=== PATIENT | female | born 1975 | race Caucasian/White ===

== ENCOUNTER 2023-04-07 06:29 | Day surgery (SDC) | payer OTHER, SELFPAY ==
--- NOTE | 2023-03-20 09:30 | CM ---
Patient is scheduled for cervical spine surgery on 04/07/23. Spoke with patient prior to surgery via telephone. Introduced role of the Orthopedic Navigator. Patient reports that she lives with her and three children in a two story home. There
are three steps to enter and a flight of steps to the second floor. She currently functions independently. She has a cervical collar. She has never had VN services. PCP is Johana Interiano.
Discussed orthopedic program, post surgical plans and tentative plan for patient to return home when directed by surgeon. Patient is in agreement with tentative plan and will have support from her family when she goes home.
Plan: Orthopedic Navigator will remain available to assist with the care of patient and will reassess discharge needs after surgery.
[2023-04-03 13:08] VITALS: BMI 25.9
[2023-04-03 13:51] VITALS: BMI 25.9
[2023-04-03 14:10] LABS: Hematocrit 35.1 % (37.0-47.0); Hemoglobin 11.8 g/dL (12.0-16.0); Mean Corp Hgb Conc. 33.6 g/dL (33.0-37.0); Mean Corpuscular Hgb 27.8 pg (27.0-31.0); Mean Corpuscular Volume 82.6 fL (81.0-99.0); Mean Platelet Volume 10.3 fL (7.4-10.4); Platelet Count 341 10^3/uL (130-400); Red Blood Cell Count 4.25 10^6/uL (4.20-5.40); Red Cell Dist. Width 13.3 % (11.5-14.5); White Blood Cell Count 7.7 10^3/uL (4.8-10.8)
[2023-04-03 14:20] LABS: ALT (SGPT) 40 U/L (0-35); AST (SGOT) 32 U/L (14-36); Albumin 4.4 g/dl (3.5-5.0); Alkaline Phosphatase 104 U/L (38-126); Blood Urea Nitrogen 11 mg/dl (7-17); Calcium 9.3 mg/dl (8.4-10.2); Carbon Dioxide 24 mmol/L (22-30); Chloride 105 mmol/L (98-107); Estimated Creatinine Clearance 78 ml/min; Glucose 110 mg/dl (70-99); Sodium 137 mmol/L (135-145); Total Bilirubin 0.5 mg/dl (0.2-1.3); Total Protein 7.2 g/dl (6.3-8.2); eGFR > 60.00
[2023-04-07] VITALS (10 sets, daily range): BP systolic 113–154; BP diastolic 67–101; BMI 25.9
[2023-04-07] MEDS: NORMOSOL-R 1000 IV (07:49)
[2023-04-07] MEDS: TRANSDERM-SCOP 1 PATCH TRANSDERM (08:45)
[2023-04-07] MEDS: DILAUDID 0.25 MG IV ×2 (11:42→12:01)
[2023-04-07] MEDS: ULTRAM 50 MG PO (13:37)
== END 2023-04-07 13:53 | disposition home or self-care (01) ==
LOC: SDS 06:29
PROVIDERS: ATTENDING PHYSICIAN Orthopaedic Surgery Orthopaedic Surgery of the Spine; FAMILY PHYSICIAN Physician Assistant Medical; OTHER PHYSICIAN Physician Assistant Medical
DX: M48.02 Spinal stenosis, cervical region (principal); M50.122 Cervical disc disorder at C5-C6 level with radiculopathy
CPT/HCPCS: 22551; 22554; 22845; 22853; C1776; 36415; 72020; 80053; 85027; 86850; 86900; 86901; 87070; 93005; C1713

== ENCOUNTER → 2023-05-25 10:53 | Outpatient (REF) | payer OTHER, SELFPAY | LOC: PAVMRI 10:53 | PROVIDERS: ATTENDING PHYSICIAN Orthopaedic Surgery Orthopaedic Surgery of the Spine; FAMILY PHYSICIAN Physician Assistant Medical | DX: M48.02 Spinal stenosis, cervical region (principal) | CPT/HCPCS: 72141 ==

== ENCOUNTER → 2023-06-10 16:52 | Outpatient (REF) | payer OTHER, SELFPAY | LOC: PAVMRI 16:52 | PROVIDERS: ATTENDING PHYSICIAN Nurse Practitioner Adult Health; FAMILY PHYSICIAN Physician Assistant Medical | DX: Q07.00 Arnold-Chiari syndrome without spina bifida or hydrocephalus (principal); R26.9 Unspecified abnormalities of gait and mobility | CPT/HCPCS: 72146 ==

== ENCOUNTER → 2023-06-18 17:25 | Outpatient (REF) | payer OTHER, SELFPAY | LOC: MRI 17:25 | PROVIDERS: ATTENDING PHYSICIAN Nurse Practitioner Adult Health; FAMILY PHYSICIAN Physician Assistant Medical | DX: Q07.00 Arnold-Chiari syndrome without spina bifida or hydrocephalus (principal); M47.812 Spondylosis without myelopathy or radiculopathy, cervical region; R26.9 Unspecified abnormalities of gait and mobility | CPT/HCPCS: 70553; A9575 ==

== ENCOUNTER → 2023-06-19 08:32 | Outpatient (REF) | payer OTHER, SELFPAY | LOC: WDC 08:32 | PROVIDERS: ATTENDING PHYSICIAN Nurse Practitioner Family | DX: Z12.31 Encounter for screening mammogram for malignant neoplasm of breast (principal) | CPT/HCPCS: 77063; 77067 ==

== ENCOUNTER 2023-06-29 20:40 | Emergency (ER) | payer OTHER, SELFPAY ==
[2023-06-29 20:42] VITALS: BP 174/108
[2023-06-29 21:01] LABS: % Basophils 0.6 % (0-2); % Immature Granulocytes 0.4 % (0-0.5); % Lymphocytes 23.3 % (20.5-51.1); % Monocytes 8.4 % (1.7-9.3); % Neutrophils 66.3 % (42.2-75.2); Absolute Basophils 0.1 10^3/uL (0-0.2); Absolute Eosinophils 0.1 10^3/uL (0-0.7); Absolute Immature Granulocytes 0.1 10^3/uL (0-0.05); Absolute Lymphocytes 3.3 10^3/uL (1.2-3.4); Absolute Monocytes 1.2 10^3/uL (0.1-0.6); Absolute Neutrophils 9.5 10^3/uL (1.4-6.5); Mean Corp Hgb Conc. 33.3 g/dL (33.0-37.0); Mean Corpuscular Hgb 27.1 pg (27.0-31.0); Mean Corpuscular Volume 81.3 fL (81.0-99.0); Mean Platelet Volume 9.5 fL (7.4-10.4); Nucleated Red Blood Cells % 0 %; Platelet Count 389 10^3/uL (130-400); Red Blood Cell Count 4.43 10^6/uL (4.20-5.40); Red Cell Dist. Width 13.5 % (11.5-14.5); White Blood Cell Count 14.3 10^3/uL (4.8-10.8)
[2023-06-29 21:02] LABS: Urine Albumin Trace (Neg - Trace); Urine Bilirubin Negative (Negative); Urine Character Clear (Clear); Urine Color Red; Urine Glucose Negative (Negative); Urine Ketone Negative (Negative); Urine Leukocyte 2+ (Negative); Urine Nitrite Negative (Negative); Urine Occult Blood 4+ (Negative); Urine Urobilinogen Negative (Neg - 1+)
[2023-06-29 21:09] LABS: Urine Bacteria Moderate (Negative); Urine Red Blood Cell 26-30 /HPF (0-2)
[2023-06-29 21:12] LABS: HCG, Serum Qualitative Screen Negative
[2023-06-29 21:17] LABS: ALT (SGPT) 17 U/L (0-35); AST (SGOT) 23 U/L (14-36); Albumin 4.8 g/dl (3.5-5.0); Alkaline Phosphatase 105 U/L (38-126); Blood Urea Nitrogen 10 mg/dl (7-17); Calcium 9.8 mg/dl (8.4-10.2); Carbon Dioxide 28 mmol/L (22-30); Chloride 100 mmol/L (98-107); Glucose 96 mg/dl (70-99); Potassium 3.5 mmol/L (3.5-5.1); Sodium 134 mmol/L (135-145); Total Bilirubin 0.3 mg/dl (0.2-1.3); eGFR > 60.00
[2023-06-29 23:22] VITALS: BMI 26.8
[2023-06-29 23:26] VITALS: BP 160/93
--- NOTE | 2023-06-30 00:08 | ED.GENMED ---
History of Present Illness
General
Chief Complaint: Urinary Symptoms
Source: patient
Exam Limitations: none
Time Seen by Provider: 06/29/23 23:52
Nursing documentation reviewed up to this point in time: agreed with
Travel History
Have you had any contact with someone who has COVID-19?: No
Do you have any symptoms of coronavirus? Fever > 100 degrees, chills, cough, shortness of breath, sore throat, loss of taste or smell, muscle aches, or headache?: No
History of Present Illness
History of Present Illness:
47-year-old female presents to emergency department complaining of right flank pain, dysuria and hematuria. No fevers. It feels similar to when she had a kidney stone.
Past History
Past History
ED Past Medical History: GERD
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
Social History
Tobacco: Non-smoker
Alcohol: None
Personal:
Living: with family
Employment: Employed
Review of Systems
Review of Systems
Allergies reviewed?: Yes
Constitutional: Reports no symptoms
EENT: Reports no symptoms
Respiratory: Reports no symptoms
Cardiac: Reports no symptoms
ABD/GI: Reports no symptoms
: Reports dysuria, flank pain, urgency and bleeding
Musculoskeletal: Reports no symptoms
Skin: Reports no symptoms
Neurological: Reports no symptoms
Endocrine: Reports no symptoms
Hematologic/Lymphatic: Reports no symptoms
Psychiatric: Reports no symptoms
Phy Exam
Physical Exam
Physical Exam:
Physical Exam
General: no apparent distress, not acutely ill
Neck: supple. no meningeal signs. normal posterior pharynx
Heart: s1/s2 regular rate and rhythm, no murmur. equal radial
pulses.
HEENT: Pupils equal round reactive to light, EOMI
Lungs: no acute respiratory distress. clear bilaterally
Abdomen: normal bowel sounds. not tender. no CVAT
Neuro: alert and oriented. no focal neurological deficits cranial nerves II through XII intact
Skin: no rash
Psychiatric: well kept. interactive and cooperative
Extremities: no edema. no calf tenderness. negative homans. 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
Course
Orders/Labs/Results
Orders:
Orders
06/29/23 20:46
Test Result ONCE
06/29/23 20:48
Urinalysis Reflex To Culture Urgent
Date Specimen was Collected: 06/29/23
Time Specimen was Collected: 20:47
Urine Microscopic Reflex Cult Urgent
Urine Culture Urgent
MANE Source: U
Specimen Description:
Date Specimen was Collected: 06/29/23
Time Specimen was Collected: 20:47
06/29/23 20:52
CMP [Comprehensive Metabolic Panel] Urgent
Complete Blood Count/With Diff Urgent
HCG, Serum Qualitative Screen Urgent
06/30/23 00:06
CT Abd/pel Without Iv Or Oral Urgent
Comment:
Reason For Exam: right flank pain, dysuria, hematuria
06/30/23 00:07
0.9% Sodium Chloride 1000 ml [Nss] 1,000 ml IV BOLUS
06/30/23 01:36
CefTRIAXone [Rocephin] 1,000 mg IV NOW STA
Abnormal Lab Results
06/29/23 06/29/23
20:48 20:52
WBC 14.3 H 10^3/uL
(4.8-10.8)
Hct 36.0 L %
(37.0-47.0)
Abs Immat Gran (auto) 0.1 H 10^3/uL
(0-0.05)
Absolute Neuts (auto) 9.5 H 10^3/uL
(1.4-6.5)
Absolute Monos (auto) 1.2 H 10^3/uL
(0.1-0.6)
Sodium 134 L mmol/L
(135-145)
Ur Occult Blood Reflex 4+ A
(Negative)
Leukocyte Esterase Rfl 2+ A
(Negative)
Urine RBC 26-30 A /HPF
(0-2)
Urine WBC (Reflex) 11-15 A /HPF
(0-5)
Urine Bacteria (Reflex) Moderate A
(Negative)
06/29/23 20:52
06/29/23 20:52
Vital Signs
Initial and Last Documented VS:
Initial Vital Signs
Temp Pulse Resp BP Pulse Ox
98 F 90 18 174/108 97
06/29/23 20:42 06/29/23 20:42 06/29/23 20:42 06/29/23 20:42 06/29/23 20:42
Last Documented Vital Signs
Temp Pulse Resp BP Pulse Ox
98.4 F 93 16 146/97 100
06/30/23 01:54 06/29/23 23:26 06/29/23 23:26 06/30/23 01:54 06/29/23 23:26
MDM/Problems Addressed
Differential Diagnosis Includes:
. Ureteral calculus, pyelonephritis, UTI
MDM/Problems Addressed:
47-year-old female with suspected ascending UTI. No signs of ureteral calculus or pyelonephritis. Treat with Rocephin and Keflex. Discharged to follow-up with primary care. Return precautions given.
*Radiology
Radiology exam reviewed: preliminary read by ED provider (CT abdomen pelvis no acute findings)
*Pulse Oximetry
Patient hypoxic: no
*EKG
Interpreted by ED Provider?: NA
*Laborer Syrup Machine Interpretation
Rate: Laborer Syrup Machine- N/A
*Critical Care Note
Total Time (30-74mins, 75-104mins- exclusive of procedures): Not Applicable
Data Reviewed
Review of Other/Old Records Reveals: Radiology Studies (Prior CT abdomen pelvis 2019 no acute findings)
Patient Management
Social determinants of health affecting care: Living situation
Escalation/DeEscalation of care consider admission/obs:
Admit not indicated
ED Attending Note
-
Portions of this chart may have been created with voice recognition software.� Occasional wrong word or��sound alike� substitutions may have occurred due to the inherent limitations of voice recognition software.
Discharge Plan
Departure
Patient Disposition: Home (Routine Discharge)
Date of Disposition: 06/30/23
Time of Disposition: 01:36
Patient with high blood pressure during this ER visit?: Yes
Condition: Good
Discharge Problem:
UTI (urinary tract infection)
Instructions: Urinary Tract Infection, Adult (DC), BLOOD PRESSURE
Prescriptions:
New
cephalexin 500 mg capsule
500 mg PO BID 7 Days Qty: 14 0RF
No Action
alprazolam [Xanax] 1 mg Tablet
1 mg PO BID PRN (Reason: ANXIETY)
omeprazole 40 mg Capsule,Delayed Release(Dr/Ec)
40 mg PO DAILY
zolpidem [Ambien] 10 mg Tablet
10 mg PO HS PRN (Reason: sleep)
Multivitamin With Probiotic
1 tab PO DAILY
sulfamethoxazole-trimethoprim [Bactrim DS] 800-160 mg Tablet
1 tab PO BID
Referrals:
Naima Interiano PA [Family Provider] - Call in 1-3 days for appt
Activity Restrictions/Additional Instructions:
Stop bactrim, start keflex.
Interventions
Interventions:
*Risk Screen - Suicide Last Done: 06/29/23 20:42
*General Assessment Last Done: 06/29/23 23:23
*Neglect/Abuse Screening Last Done: 06/29/23 20:42
ED- Fall Risk Assessment Last Done: 06/29/23 23:23
*ED COVID-19 Vaccine History Last Done: 06/29/23 23:23
*Nursing Disposition Last Done: 06/30/23 02:00
ED-Female Genitourinary Assessment Last Done: 06/29/23 23:23
Discharge Date and Time
Discharge Date/Time: 06/30/23 02:00
Print Language: BAHRAINI
[2023-06-30] MEDS: NSS 1000 IV (00:37)
[2023-06-30] MEDS: ROCEPHIN 1000 MG IV (01:52)
[2023-06-30 01:54] VITALS: BP 146/97
== END 2023-06-30 02:00 | disposition home or self-care (01) ==
LOC: EMR 20:40
PROVIDERS: EMERGENCY PHYSICIAN Emergency Medicine; FAMILY PHYSICIAN Physician Assistant Medical
DX: N39.0 Urinary tract infection, site not specified (principal); R03.0 Elevated blood-pressure reading, without diagnosis of hypertension; K21.9 Gastro-esophageal reflux disease without esophagitis; G93.5 Compression of brain; J45.909 Unspecified asthma, uncomplicated; K58.9 Irritable bowel syndrome, unspecified; F41.9 Anxiety disorder, unspecified; M50.30 Other cervical disc degeneration, unspecified cervical region; Q74.0 Other congenital malformations of upper limb(s), including shoulder girdle; K76.0 Fatty (change of) liver, not elsewhere classified; Z90.49 Acquired absence of other specified parts of digestive tract; Z88.1 Allergy status to other antibiotic agents; Z88.2 Allergy status to sulfonamides; Z91.048 Other nonmedicinal substance allergy status
CPT/HCPCS: 99284; 96374; 96361; 74176; 80053; 81003; 81015; 84703; 85025; 87086

== ENCOUNTER 2023-07-01 10:41 | Emergency (ER) | payer OTHER, SELFPAY ==
[2023-07-01 10:45] VITALS: BP 141/94
--- NOTE | 2023-07-01 11:20 | ED.GENMED ---
History of Present Illness
General
Chief Complaint: Urinary Symptoms
Time Seen by Provider: 07/01/23 11:09
Travel History
Have you had any contact with someone who has COVID-19?: No
Do you have any symptoms of coronavirus? Fever > 100 degrees, chills, cough, shortness of breath, sore throat, loss of taste or smell, muscle aches, or headache?: No
History of Present Illness
History of Present Illness:
47-year-old female presents to the emergency department for evaluation of heavy vaginal bleeding developing last night. She was seen here just over 36 hours ago for flank pain and a urinary tract infection, had a CT at that time that showed no
evidence for kidney stone. Patient states her UTI symptoms have not changed, received an IV dose of antibiotics in emergency department has taken 2 oral doses thus far. States that last night she developed mild vaginal bleeding and this morning
awoke with severe saturation of underwear. Denies any fevers or chills. Continues with lower abdominal and bilateral flank discomfort. Not on any anticoagulants. Her last menstrual cycle was 18 days ago and midcycle bleeding would be very
atypical for her. Not on any hormonal control at this time.
Past History
Past History
ED Past Medical History: GERD
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
Social History
Tobacco: Non-smoker
Alcohol: None
Personal:
Living: with family
Employment: Employed
Review of Systems
Review of Systems
Allergies reviewed?: Yes
All Other Systems: ROS reviewed and negative except as documented in HPI and ROS
Phy Exam
Physical Exam
Physical Exam:
GEN: Well appearing, NAD, WDWN
HEENT: Oral mucosa moist, no scleral icterus
Cardiac: Regular rate
Lung: No respiratory distress, no tachypnea
: Deferred
MSK: No gross deformity or injuries
Skin: Good color, no pallor or jaundice, no rashes
Neuro: AO x3, moves all extremities freely
Psych: Calm, cooperative
Course
Orders/Labs/Results
Orders:
Orders
07/01/23 11:20
US Pelvis W Transvag Combined Urgent
Reason For Exam: menometrorrhagia
Vital Signs
Initial and Last Documented VS:
Initial Vital Signs
Temp Pulse Resp BP Pulse Ox
98.0 F 109 18 141/94 100
07/01/23 10:45 07/01/23 10:45 07/01/23 10:45 07/01/23 10:45 07/01/23 10:45
Last Documented Vital Signs
Temp Pulse Resp BP Pulse Ox
98.0 F 99 18 141/94 98
07/01/23 10:45 07/01/23 14:17 07/01/23 10:45 07/01/23 10:45 07/01/23 14:17
MDM/Problems Addressed
MDM/Problems Addressed:
Patient's bleeding is likely from the suspected endometrial polyp. Quantity of bleeding does not sound concerning as it is qualified as similar to her., Given that she had routine unremarkable labs in the emergency department within the past 2
days do not see any indication to repeat this. I suspect this is more coincidental than related to her UTI. Recommend outpatient [facility] follow-up
*Critical Care Note
Total Time (30-74mins, 75-104mins- exclusive of procedures): Not Applicable
ED Attending Note
-
Portions of this chart may have been created with voice recognition software.� Occasional wrong word or��sound alike� substitutions may have occurred due to the inherent limitations of voice recognition software.
Discharge Plan
Departure
Patient Disposition: Home (Routine Discharge)
Date of Disposition: 07/01/23
Time of Disposition: 14:04
Patient with high blood pressure during this ER visit?: No
Discharge Problem:
Menometrorrhagia
Instructions: Bleeding Between Periods
Prescriptions:
No Action
alprazolam [Xanax] 1 mg Tablet
1 mg PO BID PRN (Reason: ANXIETY)
omeprazole 40 mg Capsule,Delayed Release(Dr/Ec)
40 mg PO DAILY
zolpidem [Ambien] 10 mg Tablet
10 mg PO HS PRN (Reason: sleep)
Multivitamin With Probiotic
1 tab PO DAILY
sulfamethoxazole-trimethoprim [Bactrim DS] 800-160 mg Tablet
1 tab PO BID
cephalexin 500 mg capsule
500 mg PO BID 7 Days Qty: 14 0RF
Referrals:
Naima Interiano PA [Family Provider] -
Activity Restrictions/Additional Instructions:
Follow up with your DERRICK HELPER regarding the possible endometrial polyp seen on ultrasound
Interventions
Interventions:
*Risk Screen - Suicide Last Done: 07/01/23 11:39
*General Assessment Last Done: 07/01/23 11:39
*Neglect/Abuse Screening Last Done: 07/01/23 11:39
ED- Fall Risk Assessment Last Done: 07/01/23 11:40
*ED COVID-19 Vaccine History Last Done: 07/01/23 10:45
*Nursing Disposition Last Done: 07/01/23 14:17
ED-Female Genitourinary Assessment Last Done: 07/01/23 11:40
Discharge Date and Time
Discharge Date/Time: 07/01/23 14:18
Print Language: BURKINAN
[2023-07-01 11:39] VITALS: BMI 25.8
== END 2023-07-01 14:18 | disposition home or self-care (01) ==
LOC: EMR 10:41
PROVIDERS: EMERGENCY PHYSICIAN Emergency Medicine; FAMILY PHYSICIAN Physician Assistant Medical
DX: N92.1 Excessive and frequent menstruation with irregular cycle (principal)
CPT/HCPCS: 99284; 76830; 76856

== ENCOUNTER 2023-07-10 11:57 | Outpatient (RCR) | payer OTHER, SELFPAY | END 2023-07-10 23:59 | disposition home or self-care (01) | LOC: RPT 11:57 | PROVIDERS: ATTENDING PHYSICIAN Orthopaedic Surgery Orthopaedic Surgery of the Spine; FAMILY PHYSICIAN Physician Assistant Medical; OTHER PHYSICIAN Orthopaedic Surgery; OTHER PHYSICIAN Physician Assistant Medical | DX: M48.02 Spinal stenosis, cervical region (principal); Z98.1 Arthrodesis status; Z73.6 Limitation of activities due to disability | CPT/HCPCS: 97110; 97163; 97535 ==

== ENCOUNTER 2023-08-14 15:19 | Outpatient (RCR) | payer OTHER, SELFPAY | END 2023-08-14 23:59 | disposition home or self-care (01) | LOC: RPT 15:19 | PROVIDERS: ATTENDING PHYSICIAN Orthopaedic Surgery Orthopaedic Surgery of the Spine; FAMILY PHYSICIAN Physician Assistant Medical; OTHER PHYSICIAN Orthopaedic Surgery; OTHER PHYSICIAN Physician Assistant Medical | DX: M48.02 Spinal stenosis, cervical region (principal); Z98.1 Arthrodesis status; Z73.6 Limitation of activities due to disability | CPT/HCPCS: 97110; 97535 ==

== ENCOUNTER → 2023-08-26 10:51 | Outpatient (REF) | payer OTHER, SELFPAY | LOC: WDC 10:51 | PROVIDERS: ATTENDING PHYSICIAN Obstetrics & Gynecology; FAMILY PHYSICIAN Physician Assistant Medical | DX: R92.2 Inconclusive mammogram (principal) | CPT/HCPCS: 76641 ==

== ENCOUNTER → 2023-08-27 07:39 | Outpatient (REF) | payer OTHER, SELFPAY | LOC: EMG 07:39 | PROVIDERS: ATTENDING PHYSICIAN Nurse Practitioner Adult Health; FAMILY PHYSICIAN Family Medicine | DX: R20.0 Anesthesia of skin (principal) | CPT/HCPCS: 95886; 95909 ==

== ENCOUNTER → 2023-10-09 10:55 | Outpatient (REF) | payer OTHER, SELFPAY | LOC: RAD 10:55 | PROVIDERS: ATTENDING PHYSICIAN Obstetrics & Gynecology; FAMILY PHYSICIAN Nurse Practitioner Family | DX: N39.8 Other specified disorders of urinary system (principal) | CPT/HCPCS: 58340; 76830; 76831; 76856 ==

== ENCOUNTER 2023-11-02 11:55 | Outpatient (RCR) | payer OTHER, SELFPAY | END 2023-11-02 23:59 | disposition home or self-care (01) | LOC: ROT 11:55 | PROVIDERS: ATTENDING PHYSICIAN Orthopaedic Surgery Hand Surgery; FAMILY PHYSICIAN Physician Assistant Medical | DX: R20.0 Anesthesia of skin (principal); Z73.6 Limitation of activities due to disability | CPT/HCPCS: 97018; 97035; 97110; 97140; 97166; 97535 ==

== ENCOUNTER → 2023-12-15 13:09 | Outpatient (REF) | payer OTHER, SELFPAY | LOC: RCS 13:09 | PROVIDERS: ATTENDING PHYSICIAN Internal Medicine Cardiovascular Disease; FAMILY PHYSICIAN Nurse Practitioner Family | DX: R00.2 Palpitations (principal) | CPT/HCPCS: 93225; 93226 ==

== ENCOUNTER → 2023-12-18 20:23 | Outpatient (REF) | payer OTHER, SELFPAY | LOC: PAVMRI 20:23 | PROVIDERS: ATTENDING PHYSICIAN Orthopaedic Surgery Hand Surgery; FAMILY PHYSICIAN Nurse Practitioner Family | DX: M25.512 Pain in left shoulder (principal) | CPT/HCPCS: 73221 ==

== ENCOUNTER 2023-12-29 06:54 | Day surgery (SDC) | payer OTHER, SELFPAY ==
[2023-12-29] VITALS (8 sets, daily range): BP systolic 124–145; BP diastolic 64–84; BMI 27.0
[2023-12-29] MEDS: TYLENOL 1000 MG PO (12:01)
[2023-12-29] MEDS: MOBIC 15 MG PO (12:01)
[2023-12-29] MEDS: TRANSDERM-SCOP 1 PATCH TRANSDERM (12:03)
[2023-12-29] MEDS: DILAUDID 0.25 MG IV (14:13)
[2023-12-29] MEDS: DEMEROL 12.5 MG IV ×2 (14:28→14:38)
[2023-12-29] MEDS: ZOFRAN 4 MG IV (14:34)
--- NOTE | 2023-12-29 15:13 | SUR.PHASEI ---
patient in pacu - initially sedate and then c/o pain 10/10 right hand - but feels 'always difficult to take a deep breath after surgery' - cautiously medicating with dilaudid. Then shivering violently - Medicated with demerol x2 for shivers with
relief and some relief of pain, zofran repeated for slight nausea. Now feels pain is tolerable at 9.5 - refuses further pain meds, positioned for comfort. right arm elevated as much as possible. able to take ice chip po and tolerate..Discharge
to [facility]
== END 2023-12-29 16:47 | disposition home or self-care (01) ==
LOC: SDS 06:54
PROVIDERS: ATTENDING PHYSICIAN Orthopaedic Surgery Hand Surgery
DX: G56.01 Carpal tunnel syndrome, right upper limb (principal); M18.11 Unilateral primary osteoarthritis of first carpometacarpal joint, right hand; M75.42 Impingement syndrome of left shoulder; M75.41 Impingement syndrome of right shoulder
CPT/HCPCS: 25447; 64721

== ENCOUNTER 2024-02-18 08:59 | Outpatient (RCR) | payer OTHER, SELFPAY | END 2024-02-18 23:59 | disposition home or self-care (01) | LOC: ROT 08:59 | PROVIDERS: ATTENDING PHYSICIAN Orthopaedic Surgery Hand Surgery; FAMILY PHYSICIAN Physician Assistant Medical | DX: Z47.89 Encounter for other orthopedic aftercare (principal); M79.641 Pain in right hand; M25.641 Stiffness of right hand, not elsewhere classified; Z73.6 Limitation of activities due to disability | CPT/HCPCS: 97018; 97110; 97140; 97166; 97535 ==

== ENCOUNTER → 2024-03-16 09:16 | Outpatient (REF) | payer OTHER, SELFPAY | LOC: HWRAD 09:16 | PROVIDERS: ATTENDING PHYSICIAN Nurse Practitioner Adult Health; FAMILY PHYSICIAN Nurse Practitioner Family | DX: Q07.00 Arnold-Chiari syndrome without spina bifida or hydrocephalus (principal) | CPT/HCPCS: 70450 ==

== ENCOUNTER 2024-03-23 14:46 | Emergency (ER) | payer OTHER, SELFPAY ==
[2024-03-23 14:48] VITALS: BP 170/100
--- NOTE | 2024-03-23 17:42 | ED.GENMED ---
History of Present Illness
<Shanika Lopez PA-C - Last Filed: 03/23/24 23:28>
General
Chief Complaint: Facial Problem
Source: patient and spouse ( at bedside)
Exam Limitations: none
Time Seen by Provider: 03/23/24 17:04
Nursing documentation reviewed up to this point in time: agreed with
History of Present Illness
History of Present Illness:
48-year-old female presenting with decreased sensation to left side of face. Patient has noticed the symptoms for the past week and feels they are mildly worsening. Patient denies any total numbness but describes a 'swollen' sensation from left
forehead down to left chin. Patient denies any dysphagia or difficulty chewing. Patient states the sensory deficits to extremities. No focal weakness. Patient does state that she has had an unsteady gait and headaches since surgery. Patient
denies any fevers although has had intermittent chills. No difficulty breathing
Of note�patient did have a Chiari malformation surgery approximately 1 month ago at [facility] complicated by a left TM perforation for which she has been following with ENT. Patient has had intermittent fullness in her left ear and sharp pain. Some
decrease in hearing on left side. She has a follow-up with ENT scheduled on Thursday.
Patient did contact ENT and her neurosurgeon who recommended evaluation the emergency department regarding facial numbness.
Past History
<Shanika Lopez PA-C - Last Filed: 03/23/24 23:28>
Past History
ED Past Medical History: GERD
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
Social History
Tobacco: Non-smoker
Alcohol: None
Personal:
Living: with family
Employment: Employed
Review of Systems
<Shanika Lopez PA-C - Last Filed: 03/23/24 23:28>
Review of Systems
Allergies reviewed?: Yes
All Other Systems: ROS reviewed and negative except as documented in HPI and ROS
Phy Exam
<Shanika Lopez PA-C - Last Filed: 03/23/24 23:28>
Physical Exam
Physical Exam:
Vitals: Patient's vital signs are stable. Afebrile
General: Patient is in no apparent distress.
Skin: Warm and dry, no rashes or lesions
Head: Normocephalic, atraumatic. Well-healing vertical scar on occipital scalp.
Eyes: Sclera nonicteric. EOMs intact. Visual zayas intact. No nystagmus. No ptosis
Ears: Right ear patent with clear TM and visualized landmarks. Left ear with clot, unable to visualize TM.
Throat: Protecting airway
Neck: Normal ROM, no cervical spine tenderness, no meningismus
Cardiac: Regular rate and rhythm, no murmurs.
Pulm: Normal respiratory effort, no wheezes, rales, rhonchi heard on exam.
Abdomen: No abdominal tenderness.
Extremities: No evidence of cyanosis or edema. Strength 5/5 in bilateral upper and lower extremities
Neuro: AAOx3. CN II-XII intact. Mild sensory deficit to left face. No facial asymmetry. No facial droop.
Psychiatric: Normal affect.
Course
<Shanika Lopez PA-C - Last Filed: 03/23/24 23:28>
Orders/Labs/Results
Orders:
Orders
03/23/24 18:31
CT Head W/o Iv Contrast Urgent
Comment: perforated L TM, recent chiari malformation sx
Reason For Exam: left facial numbness, requested per ENT
Vital Signs
Initial and Last Documented VS:
Initial Vital Signs
Temp Pulse Resp BP Pulse Ox
98.2 F 102 16 170/100 98
03/23/24 14:48 03/23/24 14:48 03/23/24 14:48 03/23/24 14:48 03/23/24 14:48
Last Documented Vital Signs
Temp Pulse Resp BP Pulse Ox
98.2 F 95 18 134/87 99
03/23/24 14:48 03/23/24 21:18 03/23/24 21:18 03/23/24 20:01 03/23/24 21:18
<Tom Abdalla DO - Last Filed: 03/23/24 20:19>
Orders/Labs/Results
Orders:
Orders
03/23/24 18:31
CT Head W/o Iv Contrast Urgent
Comment: perforated L TM, recent chiari malformation sx
Reason For Exam: left facial numbness, requested per ENT
Vital Signs
Initial and Last Documented VS:
Initial Vital Signs
Temp Pulse Resp BP Pulse Ox
98.2 F 102 16 170/100 98
03/23/24 14:48 03/23/24 14:48 03/23/24 14:48 03/23/24 14:48 03/23/24 14:48
Last Documented Vital Signs
Temp Pulse Resp BP Pulse Ox
98.2 F 95 18 134/87 99
03/23/24 14:48 03/23/24 21:18 03/23/24 21:18 03/23/24 20:01 03/23/24 21:18
<Shanika Lopez PA-C - Last Filed: 03/23/24 23:28>
MDM/Problems Addressed
Differential Diagnosis Includes:
Not limited to: Postoperative complication, trigeminal neuralgia, perforated TM, mastoiditis, etc.
MDM/Problems Addressed:
48-year-old female presents to ED with mild sensory deficit to left face ongoing over the past 1 to 2 weeks. Did have recent Chiari malformation surgery performed at [facility] 02/23 complicated by left TM perforation following with ENT. No associated
motor deficits, visual changes, dysphagia. No fevers. No mastoid tenderness or purulent drainage. Hypertensive on arrival although improved by my assessment. On exam�patient is well-appearing, in no apparent distress. She has a well-healing
vertical scar on scalp without evidence of surrounding cellulitis. She has no mastoid tenderness. Small clot noted in left ear unable to visualize TM. She does have a very mild sensory deficit to left face, although no numbness. No other focal
neurologic deficits on exam. Patient afebrile with otherwise no infectious symptoms. Very low suspicion for infectious process. No clinical suspicion for mastoiditis. Did discuss with ENT, Dr. Calle who recommends plain head CT, as this should
get good visualization of ear.
Update: CT head without acute findings. Ultimately�this may be a postoperative complication with possible involvement of the trigeminal nerve. Once again�do not suspect infectious process. Did contact patient's neurosurgeon at [facility] to relay
results. She will follow-up with patient next week in office. Advised patient to also follow-up with ENT as scheduled. Otherwise�patient stable for discharge home. Return precautions discussed
Chronic conditions affecting care:
Chiari Malformation
Acute Exacerbation and/or Progression of Chronic Illness:
N/A
<Shanika Lopez PA-C - Last Filed: 03/23/24 23:28>
*Radiology
Radiology exam reviewed: preliminary read by ED provider and radiology read reviewed
*Pulse Oximetry
Patient hypoxic: no
*EKG
Interpreted by ED Provider?: NA
*Shock Absorber Installer Interpretation
Rate: Shock Absorber Installer- N/A
*Critical Care Note
Total Time (30-74mins, 75-104mins- exclusive of procedures): Not Applicable
<Shanika Lopez PA-C - Last Filed: 03/23/24 23:28>
Patient Management
Discussion with other providers: Employee Representative (Dr. Caro Araya - neurosurgery at [facility])
ED Attending Note
<Shanika Lopez PA-C - Last Filed: 03/23/24 23:28>
-
Portions of this chart may have been created with voice recognition software.� Occasional wrong word or��sound alike� substitutions may have occurred due to the inherent limitations of voice recognition software.
<Tom Abdalla DO - Last Filed: 03/23/24 20:19>
ED Attending Note
Patient seen and examined by attending physician: Yes
I performed the substantive portion of visit, reviewed & personally made and approve the management plan that is documented in note by myself or ROBERT.: Yes
ED Attending Note:
48-year-old female who presents with symptoms as above. Recently had Chiari malformation surgery but unfortunately had a complication of perforated left TM. Exam: Awake alert, normal neuroexam. Left TM does have a clot noted but unable to see the
perforation. Cranial nerves are intact by motor exam. Assessment and plan: Check CT and if okay coordinate with neurosurgery already has ENT follow-up
Discharge Plan
Departure
Patient Disposition: Home (Routine Discharge)
Date of Disposition: 03/23/24
Time of Disposition: 21:02
Patient with high blood pressure during this ER visit?: Yes
Condition: Good
Covid-19: Not Applicable
Discharge Problem:
Left facial numbness, Post-operative complication
Instructions: BLOOD PRESSURE
Prescriptions:
No Action
alprazolam [Xanax] 1 mg Tablet
1 mg PO BID PRN (Reason: ANXIETY)
omeprazole 40 mg Capsule,Delayed Release(Dr/Ec)
40 mg PO DAILY
Multivitamin With Probiotic
1 tab PO DAILY
Belsomra 20 mg Tablet
20 mg PO HS
Referrals:
Caro Araya [Non-Admitting Privileges] - Follow up in 1 week
Olivia Munoz CRNP [Family Provider] -
Activity Restrictions/Additional Instructions:
Return to the emergency department with any fevers, severe headache/neck pain, severe pain in ER, weakness/numbness extremities, new neurologic deficits, or any other concerns
-As discussed�your head CT performed to the emergency department showed no acute abnormalities.
-Continue to follow your postoperative instructions as recommended by neurosurgery.
-As discussed�I did speak with your neurosurgeon dax. They will arrange for a closer follow-up outpatient sometime next week.
-You should also keep your appointment with ENT for this Thursday.
Monitor your symptoms closely and return to the emergency department with any acute worsening/new symptoms or any other concerns
Interventions
Interventions:
*Risk Screen - Suicide Last Done: 03/23/24 14:48
*General Assessment Last Done: 03/23/24 18:18
*Neglect/Abuse Screening Last Done: 03/23/24 14:48
ED- Fall Risk Assessment Last Done: 03/23/24 21:18
*ED COVID-19 Vaccine History Last Done: 03/23/24 18:18
*Nursing Disposition Last Done: 03/23/24 21:18
ED- Neurological Assessment Last Done: 03/23/24 18:19
ED-Skin Assessment Last Done: 03/23/24 18:20
Discharge Date and Time
Discharge Date/Time: 03/23/24 21:20
Print Language: DIVEHI
[2024-03-23 17:58] VITALS: BP 147/90
[2024-03-23 18:00] VITALS: BP 137/92
[2024-03-23 18:17] VITALS: BMI 23.9
[2024-03-23 20:01] VITALS: BP 134/87
== END 2024-03-23 21:20 | disposition home or self-care (01) ==
LOC: EMR 14:46
PROVIDERS: EMERGENCY PHYSICIAN Emergency Medicine; FAMILY PHYSICIAN Nurse Practitioner Family
DX: T81.89XA Other complications of procedures, not elsewhere classified, initial encounter (principal); R20.0 Anesthesia of skin; Y92.9 Unspecified place or not applicable; K21.9 Gastro-esophageal reflux disease without esophagitis
CPT/HCPCS: 99284; 70450

== ENCOUNTER 2024-05-05 13:01 | Outpatient (RCR) | payer OTHER, SELFPAY | END 2024-05-05 23:59 | disposition home or self-care (01) | LOC: ROT 13:01 | PROVIDERS: ATTENDING PHYSICIAN Orthopaedic Surgery Hand Surgery; FAMILY PHYSICIAN Physician Assistant Medical | DX: Z47.89 Encounter for other orthopedic aftercare (principal); Z73.6 Limitation of activities due to disability; M79.641 Pain in right hand; M25.541 Pain in joints of right hand | CPT/HCPCS: 97018; 97110; 97140; 97166; 97535 ==

== ENCOUNTER 2024-05-20 08:27 | Outpatient (RCR) | payer OTHER, SELFPAY | END 2024-05-20 23:59 | disposition home or self-care (01) | LOC: RPT 08:27 | PROVIDERS: ATTENDING PHYSICIAN Nurse Practitioner Adult Health; FAMILY PHYSICIAN Nurse Practitioner Family | DX: R42 Dizziness and giddiness (principal); Q07.00 Arnold-Chiari syndrome without spina bifida or hydrocephalus; Z73.6 Limitation of activities due to disability; R26.2 Difficulty in walking, not elsewhere classified | CPT/HCPCS: 97112; 97162 ==

== ENCOUNTER 2024-05-20 10:19 | Outpatient (RCR) | payer OTHER, SELFPAY | END 2024-05-20 23:59 | disposition home or self-care (01) | LOC: ROT 10:19 | PROVIDERS: ATTENDING PHYSICIAN Orthopaedic Surgery Hand Surgery; FAMILY PHYSICIAN Physician Assistant Medical | DX: Z47.89 Encounter for other orthopedic aftercare (principal); Z73.6 Limitation of activities due to disability; M79.641 Pain in right hand; M25.541 Pain in joints of right hand | CPT/HCPCS: 97018; 97110 ==

== ENCOUNTER → 2024-06-06 15:22 | Outpatient (REF) | payer OTHER, SELFPAY | LOC: RAD 15:22 | PROVIDERS: ATTENDING PHYSICIAN Student in an Organized Health Care Education/Training Program; FAMILY PHYSICIAN Nurse Practitioner Family | DX: Q07.00 Arnold-Chiari syndrome without spina bifida or hydrocephalus (principal) | CPT/HCPCS: 70450 ==

== ENCOUNTER → 2024-06-25 10:51 | Outpatient (REF) | payer OTHER, SELFPAY | LOC: RAD 10:51 | PROVIDERS: ATTENDING PHYSICIAN Nurse Practitioner Adult Health; FAMILY PHYSICIAN Nurse Practitioner Family | DX: Q07.00 Arnold-Chiari syndrome without spina bifida or hydrocephalus (principal); M47.812 Spondylosis without myelopathy or radiculopathy, cervical region | CPT/HCPCS: 72125 ==

== ENCOUNTER 2024-06-30 11:59 | Outpatient (RCR) | payer OTHER, SELFPAY | END 2024-06-30 23:59 | disposition home or self-care (01) | LOC: RPT 11:59 | PROVIDERS: ATTENDING PHYSICIAN Nurse Practitioner Adult Health; FAMILY PHYSICIAN Nurse Practitioner Family | DX: R42 Dizziness and giddiness (principal); Q07.00 Arnold-Chiari syndrome without spina bifida or hydrocephalus; Z73.6 Limitation of activities due to disability; R26.2 Difficulty in walking, not elsewhere classified | CPT/HCPCS: 97010; 97110; 97112 ==

== ENCOUNTER → 2024-07-25 14:09 | Outpatient (REF) | payer OTHER, SELFPAY | LOC: WDC 14:09 | PROVIDERS: ATTENDING PHYSICIAN Nurse Practitioner Family | DX: Z12.31 Encounter for screening mammogram for malignant neoplasm of breast (principal) | CPT/HCPCS: 77063; 77067 ==

== ENCOUNTER 2024-07-29 06:14 | Day surgery (SDC) | payer OTHER, SELFPAY | END 2024-07-29 13:59 | disposition home or self-care (01) | LOC: GI 06:14 | PROVIDERS: ATTENDING PHYSICIAN Specialist | DX: R10.10 Upper abdominal pain, unspecified (principal); R12 Heartburn; K29.50 Unspecified chronic gastritis without bleeding | CPT/HCPCS: 43239; 88305; 88342 ==

== ENCOUNTER 2024-10-06 08:07 | Outpatient (RCR) | payer OTHER, SELFPAY | END 2024-10-06 23:59 | disposition home or self-care (01) | LOC: ROT 08:07 | DX: Z47.89 Encounter for other orthopedic aftercare (principal); M18.11 Unilateral primary osteoarthritis of first carpometacarpal joint, right hand; Z73.6 Limitation of activities due to disability | CPT/HCPCS: 97166; 97535; 97760 ==

== ENCOUNTER 2024-10-10 12:13 | Emergency (ER) | payer OTHER, SELFPAY ==
[2024-10-10 12:22] VITALS: BP 146/86
[2024-10-10 12:43] VITALS: BMI 24.5
[2024-10-10 12:55] VITALS: BP 127/88
[2024-10-10] MEDS: LIDOCAINE URO-JET 2% 1 SYRINGE TOPICAL (13:11)
--- NOTE | 2024-10-10 13:25 | EDRN ---
Reviewed discharge instructions with patient. Verbalized understanding. Ambulated with steady gait to the lobby.
[2024-10-10 13:30] VITALS: BP 127/88
--- NOTE | 2024-10-10 15:28 | ED.GENMED ---
History of Present Illness
General
Chief Complaint: Anal/Rectal Problem
Source: patient
Exam Limitations: none
Time Seen by Provider: 10/10/24 12:29
Nursing documentation reviewed up to this point in time: agreed with
History of Present Illness
History of Present Illness:
see MDM
Past History
Past History
ED Past Medical History: GERD
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
Social History
Tobacco: Non-smoker
Alcohol: None
Personal:
Living: with family
Employment: Employed
Phy Exam
Physical Exam
Physical Exam:
GENERAL: Alert , in no apparent distress
EYE: pupils equal and reactive
NECK: Supple
ENT: o/p clr, mmm.
CARDIAC: Regular rate and rhythm .
LUNGS: Clear breath sounds bilaterally, no acute respiratory distress, no wheezes/rales/rhonchi
ABDOMEN: Soft, without focal tenderness, no r/g, no cvat, normal bowel sounds
rectum: 3 external hemorrhoids without bleeding thrombosis; one does track within anus
NEUROLOGICAL: Alert and oriented, no focal neuro deficits
SKIN: Warm and dry, skin intact.
MUSCULOSKELETAL: congenital L upper arm deficiency
PSYCH: Normal and appropriate interaction.
Course
Orders/Labs/Results
Orders:
Orders
10/10/24 13:00
Lidocaine 2% [Lidocaine Uro-Jet 2%] 1 syringe TOPICAL NOW STA
Vital Signs
Initial and Last Documented VS:
Initial Vital Signs
Temp Pulse Resp BP Pulse Ox
36.8 C 100 16 146/86 98
10/10/24 12:22 10/10/24 12:22 10/10/24 12:22 10/10/24 12:22 10/10/24 12:22
Last Documented Vital Signs
Temp Pulse Resp BP Pulse Ox
36.8 C 97 18 127/88 98
10/10/24 12:22 10/10/24 13:30 10/10/24 13:30 10/10/24 13:30 10/10/24 15:29
MDM/Problems Addressed
Differential Diagnosis Includes:
see MDM
MDM/Problems Addressed:
Note:
CHIEF COMPLAINT(S)
Severe rectal pain and bleeding
HISTORY OF PRESENT ILLNESS
The patient is a 60-year-old female who presents with severe rectal pain and intermittent bleeding with stool ongoing for approximately three weeks. Initially, the patient believed the symptoms were due to a fissure. Despite using a nitroglycerin
cream prescribed by her high reach operator, which she had previously used during a similar episode in the COVID-19 pandemic, her symptoms have persisted. The cream, compounded at a pharmacy, was applied once daily for seven days, she is on her 5th
day.
The patient describes difficulty during defecation with significant pain and initially moderate rectal bleeding, which has since decreased. The patient notes excruciating pain preventing sleep and comfort, unresponsive to acetaminophen and Tramadol.
The pain was so intense it extended to the lower abdomen, described as unbearable.
Upon self-examination and with the assistance of her daughter, she discovered what appeared to be external hemorrhoids
she tried alling for colorectal appt but cannot get one for weeks
she ahs also tried tucks pads, sitz baths, tylenol, hydrocortisone cream
PAST MEDICAL AND SURGICAL HISTORY
The patient reports multiple past surgeries, including recent brain surgery for a Chiari malformation decompression.
SOCIAL DETERMINANTS AFFECTING HEALTH
The patient discussed the emotional burden of the condition and described her daughter assisting with care due to the embarrassing nature of her symptoms.
MEDICATIONS
- Acetaminophen
- Tramadol
- Lisinopril (for hypertension management)
PHYSICAL EXAM
- Perirectal examination revealed external hemorrhoids
- No evidence of external clots
- Nursing notes reviewed and vital signs noted elevated blood pressure
PROBLEM LIST
Acute:
- Severe rectal pain
- Rectal bleeding
- External hemorrhoids
Chronic:
- Hypertension (managed with Lisinopril)
PLAN
1. Initiate [id number] phenylephrine suppositories, 0.25%, twice daily for five days to reduce hemorrhoidal swelling.
2. Consider reduction to once daily for suppositories if hypertension exacerbation is noted.
3. Introduce topical anesthetic (Lidocaine) and consider switching to Anusol or Anusol-HC suppositories for combined topical pain relief and anti-inflammatory effects.
4. Recommend follow-up with colorectal specialists for further evaluation and management.
5. Reassure the patient regarding the non-emergent nature of the condition but provide reassurance about arranging an earlier specialist appointment.
6. Encourage making future specialist appointments without delay to avoid extended symptoms.
DIFFERENTIAL DIAGNOSIS
The Differential Diagnosis includes, in no particular order and is not limited to:
1. Hemorrhoids (internal and external)
2. Anal fissure
3. Infectious proctitis
4. Anal abscess
5. Colorectal polyp or neoplasm
6. Inflammatory bowel disease
7. Rectal prolapse
8. Gastrointestinal bleeding secondary to varices
9. Dermatological conditions (e.g., psoriasis or dermatitis impacting the anal area)
10. Radiation proctitis (unlikely given the history but considered in differential)
49 y/o F
here with external hemorrhoids, painful with occ bleeding with stools, thoguh that is better than it had been
pt has had symptoms x 3 weeks
trying a lot of topical/otc remedies and even nitroglycerin cream which did not help
pt has bulging several small to mod sized ext hemorrhoids, none of which are bleeding, and none are thrombosed
recommend phenylephrine supp in addition to other treamtnet
d/c the nitroglycerin
and add lidocaine cream
i spoke with PA from colorectal who will expedite aptpw ith colorecatl
*Pulse Oximetry
SaO2: 98
Oxygen Mode of Delivery: Room air
Patient hypoxic: no (98)
*Critical Care Note
Total Time (30-74mins, 75-104mins- exclusive of procedures): Not Applicable
ED Attending Note
-
Portions of this chart may have been created with voice recognition software.� Occasional wrong word or��sound alike� substitutions may have occurred due to the inherent limitations of voice recognition software.
Discharge Plan
Departure
Patient Disposition: Home (Routine Discharge)
Date of Disposition: 10/10/24
Time of Disposition: 13:01
Patient with high blood pressure during this ER visit?: Yes
Condition: Fair
Discharge Problem:
Hemorrhoid
Instructions: Hemorrhoids (DC), How to Do a Sitz Bath
Prescriptions:
New
lidocaine [Hemorrhoidal Relief] 5 % cream
1 applic topical TID PRN (Reason: Pain) Qty: 28.35 0RF
phenylephrine HCl 0.25 % suppository
1 supp [place] HS PRN (Reason: hemorrhoids) Qty: 12 0RF
No Action
alprazolam [Xanax] 1 mg Tablet
1 mg PO BID PRN (Reason: ANXIETY)
omeprazole 40 mg Capsule,Delayed Release(Dr/Ec)
40 mg PO DAILY
Multivitamin With Probiotic
1 tab PO DAILY
Belsomra 20 mg Tablet
20 mg PO HS
Referrals:
Fernando Schwarz MD [Active, [facility]]
Activity Restrictions/Additional Instructions:
YOU ARE DOING ALL THE RIGHT THINGS FOR YOUR HEMRORHOID BUT YOU SHOULD ADD SUPPOSITORIES INTO YOUR REGIMEN.
0.25% PHENYLEPHRINE SUPP ONCE A DAY FOR 5 DAYS
YOU CAN APPLY THE TOPICAL LIDOCAINE CREAM 2-3 TIMES A DAY FOR PAIN CONTROL
CONTINUE THE HYDROCORTISONE CREAM OF YOUR HUSBANDS OR WHAT YOU GOT OVER THE COUNTER IF IT JUST HAS HYDROCORTISONE IN IT
CONTINUE TUCKS PADS
CONTINUE SITZ BATHS
METAMUCIL DAILY TO PREVENT CONSTIPATION
DR. SCHWARZ'S OFFICE SHOULD CALL YOU FOR AN APPOINTEMNT
RETURN FOR ANY CONCERNS.
Interventions
Interventions:
*Risk Screen - Suicide Last Done: 10/10/24 12:22
*General Assessment Last Done: 10/10/24 12:43
*Neglect/Abuse Screening Last Done: 10/10/24 12:22
*ED- Fall Risk Assessment Last Done: 10/10/24 12:43
*ED COVID-19 Vaccine History Last Done: 10/10/24 12:43
*Nursing Disposition Last Done: 10/10/24 13:30
FU-Fupvtr-Fdlmysmqgz Assessment Last Done: 10/10/24 12:45
ED-Skin Assessment Last Done: 10/10/24 12:43
Discharge Date and Time
Discharge Date/Time: 10/10/24 13:30
Print Language: ARABIC
== END 2024-10-10 13:30 | disposition home or self-care (01) ==
LOC: EMR 12:13
PROVIDERS: EMERGENCY PHYSICIAN Emergency Medicine; FAMILY PHYSICIAN Nurse Practitioner Family
DX: K64.4 Residual hemorrhoidal skin tags (principal); Z90.49 Acquired absence of other specified parts of digestive tract
CPT/HCPCS: 99283

== ENCOUNTER 2024-11-03 15:08 | Outpatient (RCR) | payer OTHER, SELFPAY | END 2024-11-03 23:59 | disposition home or self-care (01) | LOC: ROT 15:08 | DX: Z47.89 Encounter for other orthopedic aftercare (principal); M18.11 Unilateral primary osteoarthritis of first carpometacarpal joint, right hand; Z73.6 Limitation of activities due to disability | CPT/HCPCS: 97018; 97022; 97110; 97140 ==

== ENCOUNTER → 2024-11-11 07:42 | Outpatient (REF) | payer OTHER, SELFPAY | LOC: PAVMRI 07:42 | PROVIDERS: ATTENDING PHYSICIAN Nurse Practitioner Adult Health; FAMILY PHYSICIAN Nurse Practitioner Family | DX: Q07.00 Arnold-Chiari syndrome without spina bifida or hydrocephalus (principal) | CPT/HCPCS: 70553; A9575 ==

== ENCOUNTER 2024-11-17 12:56 | Outpatient (RCR) | payer OTHER, SELFPAY | END 2024-11-17 23:59 | disposition home or self-care (01) | LOC: ROT 12:56 | DX: Z47.89 Encounter for other orthopedic aftercare (principal); M18.11 Unilateral primary osteoarthritis of first carpometacarpal joint, right hand; Z73.6 Limitation of activities due to disability | CPT/HCPCS: 97018; 97110; 97140 ==

== ENCOUNTER → 2024-12-05 09:43 | Outpatient (REF) | payer OTHER, SELFPAY | LOC: MRI 3T 09:43 | PROVIDERS: ATTENDING PHYSICIAN Nurse Practitioner Adult Health; FAMILY PHYSICIAN Nurse Practitioner Family | DX: Q07.00 Arnold-Chiari syndrome without spina bifida or hydrocephalus (principal); M47.812 Spondylosis without myelopathy or radiculopathy, cervical region | CPT/HCPCS: 72141 ==

== ENCOUNTER → 2024-12-15 15:53 | Outpatient (REF) | payer OTHER, SELFPAY | LOC: PAVMRI 15:53 | PROVIDERS: ATTENDING PHYSICIAN Student in an Organized Health Care Education/Training Program; FAMILY PHYSICIAN Nurse Practitioner Family | DX: M18.11 Unilateral primary osteoarthritis of first carpometacarpal joint, right hand (principal); M67.40 Ganglion, unspecified site; G56.01 Carpal tunnel syndrome, right upper limb | CPT/HCPCS: 73221 ==

== ENCOUNTER → 2024-12-16 07:54 | Outpatient (REF) | payer OTHER, SELFPAY | LOC: RAD 07:54 | PROVIDERS: ATTENDING PHYSICIAN Specialist; FAMILY PHYSICIAN Nurse Practitioner Family | DX: K31.89 Other diseases of stomach and duodenum (principal) | CPT/HCPCS: 78264; A9541 ==

== ENCOUNTER 2024-12-22 08:43 | Outpatient (RCR) | payer OTHER, SELFPAY | END 2024-12-26 23:59 | disposition home or self-care (01) | LOC: ROT 08:43 | PROVIDERS: ATTENDING PHYSICIAN Student in an Organized Health Care Education/Training Program | DX: Z47.89 Encounter for other orthopedic aftercare (principal); M18.11 Unilateral primary osteoarthritis of first carpometacarpal joint, right hand; Z73.6 Limitation of activities due to disability | CPT/HCPCS: 97014; 97018; 97110; 97140 ==

== ENCOUNTER 2025-01-09 11:11 | Outpatient (RCR) | payer OTHER, SELFPAY | END 2025-01-09 23:59 | disposition home or self-care (01) | LOC: ROT 11:11 | PROVIDERS: ATTENDING PHYSICIAN Student in an Organized Health Care Education/Training Program | DX: Z47.89 Encounter for other orthopedic aftercare (principal); M18.11 Unilateral primary osteoarthritis of first carpometacarpal joint, right hand; Z73.6 Limitation of activities due to disability | CPT/HCPCS: 97018; 97110; 97140 ==

== ENCOUNTER → 2025-02-21 11:01 | Outpatient (REF) | payer OTHER, SELFPAY | LOC: RCS 11:01 | PROVIDERS: ATTENDING PHYSICIAN Nurse Practitioner; FAMILY PHYSICIAN Nurse Practitioner Family | DX: R06.02 Shortness of breath (principal) | CPT/HCPCS: 93306 ==

== ENCOUNTER → 2025-02-22 10:08 | Outpatient (REF) | payer OTHER, SELFPAY | LOC: RAD 10:08 | PROVIDERS: FAMILY PHYSICIAN Nurse Practitioner Family | DX: G56.21 Lesion of ulnar nerve, right upper limb (principal); M24.541 Contracture, right hand; M65.4 Radial styloid tenosynovitis [de Quervain]; Z96.691 Finger-joint replacement of right hand | CPT/HCPCS: 76882 ==